=== PATIENT | female | born 1950 | race Caucasian/White ===

== ENCOUNTER 2019-05-21 21:20 | Inpatient (IN) | payer MEDICARE, MEDICAID ==
[~2019-05-21] VITALS: Ht 167.6 cm; Wt 90.5 kg
--- NOTE | 2019-05-21 21:00 | NUR ---
Received report from [facility]. Patient has not left the hospital yet.
[~2019-05-21 21:20] MED LIST: AMLO10TA PO; APIX5TAB3 PO; FERR325T28 PO; HYDR-4353 PO; LOSA100T57 PO; PANT40TA4 PO; POTA10TA19 PO; SERT100T10 PO; SIMV20TA5 PO
[2019-05-21 23:30] VITALS: BP 126/81
--- NOTE | 2019-05-21 23:50 | NUR ---
Patient arrived via EMR. Settled in room. Dr. Brasher called and is up on the floor with the patient.
[2019-05-21] MEDS ORDERED: magnesium hydroxide 30ml (MOM) UD suspension PO PRN (23:55)
[2019-05-21] MEDS ORDERED: ondansetron/PF 4mg/2ml inj IV PRN (23:55)
[2019-05-21] MEDS ORDERED: acetaminophen 325mg tablet PO PRN (23:55)
[2019-05-21] MEDS ORDERED: mag hydrox/Alum hydrox/simeth 30ml oral suspension PO PRN (23:55)
[2019-05-21] MEDS ORDERED: morphine 2 MG/ML inj. syringe IV PRN (23:55)
[2019-05-22] VITALS (19 sets, daily range): BP systolic 115–137; BP diastolic 70–88
[2019-05-22] MEDS ORDERED: DILT-94 PO (00:28)
[2019-05-22] MEDS ORDERED: APIX2.5T PO (00:28)
[2019-05-22] MEDS ORDERED: CARV3.12 PO (00:28)
[2019-05-22] MEDS ORDERED: ATOR80TA PO (00:28)
[2019-05-22] MEDS ORDERED: GABA-532 PO (00:28)
[2019-05-22] MEDS ORDERED: SENN-162 PO (00:28)
[2019-05-22] MEDS: normal saline 1000ml 1,000 ML IV SCH ×3 (00:45→16:32)
[2019-05-22] MEDS: metroNIDAZOLE-Flagyl 500mg/NS 100 ML IV SCH ×4 (00:45→23:37)
[2019-05-22] MEDS: morphine 2 MG/ML inj. syringe IV PRN ×3 (01:43→23:42)
--- NOTE | 2019-05-22 04:00 | NUR ---
Patient Prep and ready for surgery this morning. Bed bath given and olegario wiped.
[2019-05-22 05:22] LABS: BASOPHILS % (AUTO) 0.2 % (0-1); EOSINOPHILS % (AUTO) 0.1 % (0-6); HEMOGLOBIN 9.4 g/dl (12.0-16.0); LYMPHOCYTES % (AUTO) 7.8 % (21-51); MEAN CORPUSCULAR HEMOGLOBIN 30.5 PG (27.0-31.0); MEAN CORPUSCULAR HGB CONC 33.5 g/dL (33.0-36.5); MEAN CORPUSCULAR VOLUME 91.2 FL (78-98); MEAN PLATELET VOLUME 7.4 FL (7.4-10.4); MONOCYTES # (AUTO) 1.1 X10'3 (0-0.9); MONOCYTES % (AUTO) 8.1 % (2-12); NEUTROPHILS # (AUTO) 11.2 X10'3 (1.8-7.7); NEUTROPHILS % (AUTO) 83.8 % (42-75); PLATELET COUNT 166 X10'3 (140-440); RED BLOOD COUNT 3.07 X10'6 (4.20-5.60); RED CELL DISTRIBUTION WIDTH 15.3 % (11.5-14.5); WHITE BLOOD COUNT 13.4 X10'3 (4.5-11.0)
[2019-05-22 05:59] LABS: ALANINE AMINOTRANSFERASE 79 U/L (12-78); ALBUMIN 2.1 G/DL (3.4-5.0); ALBUMIN/GLOBULIN RATIO 0.6 (1.1-1.5); ALKALINE PHOSPHATASE 160 IU/L (46-116); ANION GAP 12 (8-16); ASPARTATE AMINO TRANSFERASE 85 U/L (10-37); BILIRUBIN,TOTAL 0.6 MG/DL (0.1-1.0); BLOOD UREA NITROGEN 10 MG/DL (7-18); BUN/CREATININE RATIO 15.2 (6.6-38.0); CALCIUM 8.1 MG/DL (8.5-10.1); CHLORIDE 107 MMOL/L (99-107); CREATININE 0.66 MG/DL (0.40-0.90); GLUCOSE 109 MG/DL (70-104); POTASSIUM 3.3 MMOL/L (3.5-5.1); SODIUM 141 MMOL/L (135-145); TOTAL CARBON DIOXIDE 21.8 MMOL/L (24-32); TOTAL PROTEIN 5.4 G/DL (6.4-8.2); eGFR 89 ML/MIN
--- NOTE | 2019-05-22 06:30 | NUR ---
Dr. Brasher notified to see if he would like another CxR done on patient before surgery. Inform him the patient had one done at [facility] yesterday- Results Negative for acute chest disease. said that was fine. We don't need another CxR.
[2019-05-22] MEDS ORDERED: potassium CL 10mEq/100ml bag 100 ML IV PRN (06:45)
[2019-05-22] MEDS ORDERED: magnesium 4gm in 100ml NS 100 ML IV PRN (06:45)
[2019-05-22] MEDS ORDERED: magnesium Cl slow-release 64mg tablet PO PRN (06:45)
[2019-05-22] MEDS ORDERED: potassium Cl 20 mEq SR tablet PO PRN (06:45)
[2019-05-22] MEDS ORDERED: magnesium 2GM in 50ml NS 50 ML IV PRN (06:45)
--- NOTE | 2019-05-22 07:10 | NUR ---
Patient in room [facility]. I have received report from Nandini NEGRON and had the opportunity to ask questions and assume patient care.
[2019-05-22 07:15] LABS: MAGNESIUM 1.6 MG/DL (1.5-2.4)
[2019-05-22] MEDS ORDERED: potassium Cl 40MEQ/NS 500ml 500 ML IV ONE (07:15)
[2019-05-22] MEDS: pantoprazole 40mg Tablet.DR PO SCH (07:28)
[2019-05-22] MEDS: diltiazem CD 120mg capsule (once-daily) PO SCH (07:28)
[2019-05-22] MEDS: carVEDilol 3.125mg tablet PO SCH ×2 (07:28→20:30)
--- NOTE | 2019-05-22 07:42 | NUR ---
Notified Zack OR Charge that patients K+ 3.3 and as soon as antibiotic is complete I will be hanging a 500ML bag of 40 Meq K+ for replacement. I also advised that lab is coming to draw her PT/INR. Per Zack he will come get her around 0930.
[2019-05-22] MEDS ORDERED: BUPIVAcaine/PF 2.5mg/ml (0.25%) 10ml vial ONE (09:25)
[2019-05-22] MEDS ORDERED: ceFAZolin 1000mg inj ONE (09:25)
[2019-05-22] MEDS ORDERED: ringers solution, lacted 1,000 ML IV SCH (10:08)
[2019-05-22] MEDS ORDERED: morphine 4 MG/ML inj SYRINge IV PRN ×2 (10:10)
[2019-05-22] MEDS ORDERED: ondansetron/PF 4mg/2ml inj IV PRN (10:10)
[2019-05-22] MEDS ORDERED: proCHLORperazine 10 MG/2 ml inj IV PRN (10:10)
[2019-05-22] MEDS ORDERED: meperidine/PF 25mg/ml syringe IV PRN ×2 (10:10)
[2019-05-22] MEDS ORDERED: sevoflurane 250ml liquid IH ONE (10:11)
[2019-05-22] MEDS ORDERED: rocuronium 10mg/ml inj IV ONE ×2 (10:11→10:16)
[2019-05-22] MEDS ORDERED: propofol inj 20 ML IV ONE (10:15)
[2019-05-22] MEDS ORDERED: fentaNYL /PF 50mcg/ml 5ml ampule ONE (10:15)
[2019-05-22] MEDS ORDERED: midazolam 2 mg/2 ml injection ONE (10:15)
[2019-05-22] MEDS ORDERED: ceFOXitin 2 GM ADDVANTGE BAG 50 ML IV ONE (10:20)
--- NOTE | 2019-05-22 11:06 | NUR ---
Patient report given to Valeria NEGRON all questions answered. Patient in surgery at this time she will assume patient care when she comes back to the floor.
--- NOTE | 2019-05-22 11:10 | NUR ---
Received report from JAMIL Angela. Patient down in OR. Will assume care when patient returns to room 340A.
[2019-05-22] MEDS ORDERED: neostigmine methylsulfate 1 MG/ML 10ml vial ONE (11:32)
[2019-05-22] MEDS ORDERED: glycopyrrolate 0.2mg/ml inj ONE (11:32)
--- NOTE | 2019-05-22 11:44 | NUR ---
Received from OR via SURGICAL BED , accompanied by Anesthesiologist ZOFIA and report given by Anesthesiolgist. PATIENT WITH 22G PIV IN RIGHT UE THAT IS NO FLUSHING OR WORKING AT ALL. 20G PIV IN LEFT AC NON FUNCTIONAL AND INFILTRATED IN LEFT. PATIENT IN PAIN AND NAUSEATED. ATTEMPTING PIV ACCESS. GABRIELE TO RIGHT OF ABDOMEN. DRESSINGS ALL CDI TO ABDOMEN. SCDS DONNED AND VSS AT THIS TIME. Addendum: 05/22/19 at 1220 by Rober Beaver RN, RN Amended: Links added.
--- NOTE | 2019-05-22 12:01 | NUR ---
Malnutrition consult re: "15 lb wt loss in the last month". Unable to obtain information from pt at this time as pt just came out of surgery for lap mychal. Only documented wt hx is 88.9 kg September 2016, current documented wt is 90.5 kg, no wt loss present using documented wt hx. Current wt classified as obese. Diet has just been advanced to clear liquid from NPO, pending documentation. No significant decrease in muscle strength or edema. Currently insufficient information to accurately assess for malnutrition at this time. Will f/u tomorrow. Addendum: 05/22/19 at [address] Amended: Links added.
[2019-05-22] MEDS: meperidine/PF 25mg/ml syringe IV PRN ×2 (12:26→12:50)
--- NOTE | 2019-05-22 13:04 | NUR ---
ALL DC CRITERIA HAS BEEN MET. IV IN RIGHT UE AND IS PATENT AND RUNNING PATIENT POTASSIUM. VSS. PAIN MUCH BETTER. JAMIL SHELTON PRESENT TO ASSESS PATIENT. LABEL MAKER PRESENT TO SET UP VS. CARE TURNED OVER TO RN. Addendum: 05/22/19 at 1324 by Rober Washington - JAMIL RN Amended: Links added.
--- NOTE | 2019-05-22 13:23 | NUR ---
Received patient to room 340a accompanied by JAMIL Richter. Patient is A&O and c/o pain 8/10 to abd. x3 band aids to abd CDI. GABRIELE to right abd with sanguinous output. Patient post op vitals initiated, on 3LNC, VSS.
[2019-05-22] MEDS: levoFLOXACIN-Levaquin 500mg/D5 100 ML IV SCH (13:38)
[2019-05-22] MEDS: HYDROcodone/acetaminophen 10/325mg tab PO PRN ×2 (15:05→20:25)
--- NOTE | 2019-05-22 17:07 | NUR ---
Problems reprioritized. Patient report given, questions answered & plan of care reviewed with JAMIL Melchor.
--- NOTE | 2019-05-22 18:22 | NUR ---
Problems reprioritized. Patient report given, questions answered & plan of care reviewed with JAMIL Momin.
--- NOTE | 2019-05-22 18:35 | NUR ---
Patient in room [facility]. I have received report from Mynra NEGRON and had the opportunity to ask questions and assume patient care.
[2019-05-22] MEDS: lactobacillus rhamnosus 10,000 MMU CELLS/CAPSULE PO SCH (20:25)
[2019-05-22] MEDS: amLODIPine 5mg tablet PO SCH (20:30)
[2019-05-23] VITALS: BP 109/60
[2019-05-23 05:21] LABS: BASOPHILS # (AUTO) 0.2 X10'3 (0-0.2); BASOPHILS % (AUTO) 1.2 % (0-1); EOSINOPHILS # (AUTO) 0.1 X10'3 (0-0.9); EOSINOPHILS % (AUTO) 0.8 % (0-6); HEMATOCRIT 30.2 % (35.0-45.0); LYMPHOCYTES # (AUTO) 0.8 X10'3 (1.1-4.8); LYMPHOCYTES % (AUTO) 5.9 % (21-51); MEAN CORPUSCULAR HEMOGLOBIN 30.3 PG (27.0-31.0); MEAN CORPUSCULAR HGB CONC 33.2 g/dL (33.0-36.5); MEAN CORPUSCULAR VOLUME 91.3 FL (78-98); MEAN PLATELET VOLUME 7.3 FL (7.4-10.4); MONOCYTES # (AUTO) 0.8 X10'3 (0-0.9); MONOCYTES % (AUTO) 5.7 % (2-12); NEUTROPHILS # (AUTO) 11.5 X10'3 (1.8-7.7); NEUTROPHILS % (AUTO) 86.4 % (42-75); PLATELET COUNT 241 X10'3 (140-440); RED CELL DISTRIBUTION WIDTH 15.9 % (11.5-14.5); WHITE BLOOD COUNT 13.3 X10'3 (4.5-11.0)
[2019-05-23] MEDS: HYDROcodone/acetaminophen 10/325mg tab PO PRN ×3 (05:44→19:38)
[2019-05-23] MEDS: normal saline 1000ml 1,000 ML IV SCH ×3 (05:46→20:21)
--- NOTE | 2019-05-23 05:51 | NUR ---
Around 5AM, patient was reminded that she had to walk (per her request to walk in the early AM as didn't feel like it last night). However, patient refused ,stating that she needed ice for her back. Informed patient that we would get ice for her back after her walk and that by getting OOB, that might help her back anyways. Patient was upset and threw back covers and started to get OOb with scd,s still on. Patient did ambulate, around 40 ft with FWW and 2 people assist. Ice was provided for her back and norco 10 given for pain once patient returned to bed.
--- NOTE | 2019-05-23 06:30 | NUR ---
Problems reprioritized. Patient report given, questions answered & plan of care reviewed with Myrna NEGRON.
[2019-05-23 07:15] VITALS: BP 124/61
[2019-05-23 07:19] LABS: ALANINE AMINOTRANSFERASE 72 U/L (12-78); ALBUMIN 2.1 G/DL (3.4-5.0); ALBUMIN/GLOBULIN RATIO 0.6 (1.1-1.5); ALKALINE PHOSPHATASE 178 IU/L (46-116); ANION GAP 11 (8-16); ASPARTATE AMINO TRANSFERASE 61 U/L (10-37); BILIRUBIN,TOTAL 0.4 MG/DL (0.1-1.0); BLOOD UREA NITROGEN 9 MG/DL (7-18); BUN/CREATININE RATIO 14.1 (6.6-38.0); CALCIUM 8.3 MG/DL (8.5-10.1); CHLORIDE 108 MMOL/L (99-107); CREATININE 0.64 MG/DL (0.40-0.90); GLUCOSE 105 MG/DL (70-104); POTASSIUM 3.6 MMOL/L (3.5-5.1); SODIUM 141 MMOL/L (135-145); TOTAL CARBON DIOXIDE 21.8 MMOL/L (24-32); TOTAL PROTEIN 5.7 G/DL (6.4-8.2); eGFR > 90 ML/MIN
[2019-05-23] MEDS: carVEDilol 3.125mg tablet PO SCH ×2 (08:08→19:38)
[2019-05-23] MEDS: diltiazem CD 120mg capsule (once-daily) PO SCH (08:09)
[2019-05-23] MEDS: pantoprazole 40mg Tablet.DR PO SCH (08:09)
[2019-05-23] MEDS: lactobacillus rhamnosus 10,000 MMU CELLS/CAPSULE PO SCH ×2 (08:09→19:38)
[2019-05-23] MEDS: metroNIDAZOLE-Flagyl 500mg/NS 100 ML IV SCH (08:12)
[2019-05-23] MEDS: levoFLOXACIN-Levaquin 500mg/D5 100 ML IV SCH (09:14)
--- NOTE | 2019-05-23 10:30 | NUR ---
Dr Hoskins saw pt and discussed that the surgical drain might be dc'd 05/24, and pt may possibly be discharged 05/24 or 05/25. Pt verbalized understanding.
[2019-05-23 11:00] VITALS: BP 125/70
--- NOTE | 2019-05-23 13:34 | NUR ---
Patient was sitting up in chair eating lunch. She stated she would like to go back to bed. Encouraged patient to ambulate one more time before going back to bed and she refused. She stated "I've already walked twice, I am not walking again today." Assisted patient back to bed, checked O2 saturation and she was 91-92% on room air. she requested to be on 1L of oxygen. Patient wears 2.5L of oxygen at home at night and throughout the day PRN.
[2019-05-23] MEDS: metroNIDAZOLE 500mg tablet PO SCH ×2 (15:59→21:39)
--- NOTE | 2019-05-23 17:04 | NUR ---
F/u for malnutrition consult: Pt seen at bedside reports 5 lb wt loss in 1 month r/t abdominal pain from cholecystitis. This is non-significant wt loss of 2% in 1 month. 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 Pt with no visible fat or muscle wasting. Pt currently does not meet criteria for malnutrition. Pt denies food allergies or difficulty chewing/swallowing. Reports constipation with LBM 05/20, agreeable to prune juice with dinner [place] d/w dietary. Pt reports blisters in mouth and requests no citrus at this time. Pt requests yogurt TID. All food requests d/w dietary. RD contact information provided. Pt c/o issues with current room r/t increased noise level with adjacent room and requests to be moved to a different room, d/w RN. Will continue to follow. Addendum: 05/23/19 at [address] Amended: Links added.
--- NOTE | 2019-05-23 17:50 | NUR ---
Stable and appropriate for discharge with son. Patient discharge instructions given and reviewed with patient, all questions answered. IV removed. New prescriptions [place] [facility] [address]. All belongings taken from room. Addendum: 05/23/19 at 1755 by Jill Mart RN Charted on wrong patient. Please disregard note!
--- NOTE | 2019-05-23 18:18 | NUR ---
Problems reprioritized. Patient report given, questions answered & plan of care reviewed with JAMIL Pineda.
[2019-05-23 19:00] VITALS: BP 143/86
[2019-05-23] MEDS: temazepam 15mg capsule PO PRN (21:39)
[2019-05-23] MEDS: amLODIPine 5mg tablet PO SCH (21:39)
[2019-05-24] VITALS: BP 131/77
[2019-05-24] MEDS: normal saline 1000ml 1,000 ML IV SCH ×2 (05:44→16:06)
[2019-05-24 06:20] LABS: BASOPHILS % (AUTO) 0.6 % (0-1); EOSINOPHILS # (AUTO) 0.4 X10'3 (0-0.9); EOSINOPHILS % (AUTO) 5.3 % (0-6); HEMATOCRIT 28.5 % (35.0-45.0); HEMOGLOBIN 9.8 g/dl (12.0-16.0); LYMPHOCYTES % (AUTO) 12.5 % (21-51); MEAN CORPUSCULAR HEMOGLOBIN 30.8 PG (27.0-31.0); MEAN CORPUSCULAR HGB CONC 34.5 g/dL (33.0-36.5); MEAN CORPUSCULAR VOLUME 89.4 FL (78-98); MEAN PLATELET VOLUME 6.9 FL (7.4-10.4); MONOCYTES # (AUTO) 0.5 X10'3 (0-0.9); MONOCYTES % (AUTO) 6.2 % (2-12); NEUTROPHILS # (AUTO) 6.3 X10'3 (1.8-7.7); NEUTROPHILS % (AUTO) 75.4 % (42-75); PLATELET COUNT 330 X10'3 (140-440); RED BLOOD COUNT 3.19 X10'6 (4.20-5.60); RED CELL DISTRIBUTION WIDTH 15.6 % (11.5-14.5); WHITE BLOOD COUNT 8.4 X10'3 (4.5-11.0)
[2019-05-24 06:54] LABS: ALANINE AMINOTRANSFERASE 55 U/L (12-78); ALBUMIN 2.2 G/DL (3.4-5.0); ALBUMIN/GLOBULIN RATIO 0.6 (1.1-1.5); ALKALINE PHOSPHATASE 163 IU/L (46-116); ANION GAP 11 (8-16); ASPARTATE AMINO TRANSFERASE 39 U/L (10-37); BILIRUBIN,TOTAL 0.4 MG/DL (0.1-1.0); BLOOD UREA NITROGEN 7 MG/DL (7-18); BUN/CREATININE RATIO 11.3 (6.6-38.0); CALCIUM 8.2 MG/DL (8.5-10.1); CHLORIDE 107 MMOL/L (99-107); CREATININE 0.62 MG/DL (0.40-0.90); GLUCOSE 108 MG/DL (70-104); POTASSIUM 3.1 MMOL/L (3.5-5.1); SODIUM 143 MMOL/L (135-145); TOTAL CARBON DIOXIDE 25.1 MMOL/L (24-32); TOTAL PROTEIN 5.9 G/DL (6.4-8.2); eGFR > 90 ML/MIN
[2019-05-24] MEDS: pantoprazole 40mg Tablet.DR PO SCH (07:31)
[2019-05-24] MEDS: lactobacillus rhamnosus 10,000 MMU CELLS/CAPSULE PO SCH ×2 (07:31→20:27)
[2019-05-24] MEDS: metroNIDAZOLE 500mg tablet PO SCH ×2 (07:32→16:04)
[2019-05-24] MEDS: potassium Cl 20 mEq SR tablet PO PRN ×3 (07:32→16:04)
[2019-05-24] MEDS: diltiazem CD 120mg capsule (once-daily) PO SCH (07:32)
[2019-05-24] MEDS: carVEDilol 3.125mg tablet PO SCH ×2 (07:32→20:26)
[2019-05-24 07:45] VITALS: BP 135/87
[2019-05-24] MEDS: ondansetron/PF 4mg/2ml inj IV PRN ×2 (09:41→17:53)
[2019-05-24 11:00] VITALS: BP 141/90
[2019-05-24] MEDS: levoFLOXACIN 500mg tablet PO SCH (11:11)
--- NOTE | 2019-05-24 12:49 | NUR ---
PT C/O SOME DIZZINESS WITH WALKING AND SLIGHT WEAKNESS, HAD TO STOP A COUPLE TIMES DURING WALK. OVERALL DID WELL ON WALK 200FT. WILL CONTINUE TO MONITOR.
--- NOTE | 2019-05-24 14:08 | NUR ---
Received page from RN regarding pt requesting to speak with RD. Pt reports difficulty eating tomato soup d/t mouth sores and also requests no milk to drink or ice cream and would like prune juice TID, preferences d/w dietary. Called RN to inform about patient reporting mouth sores and inquired about possibility of Magic Mouthwash or some agent to help reduce mouth pain per MD approval. Will continue to follow. Addendum: 05/24/19 at [address] Amended: Links added.
[2019-05-24] MEDS: HYDROcodone/acetaminophen 10/325mg tab PO PRN ×3 (14:12→22:49)
[2019-05-24] MEDS: sertraline 50mg tablet PO SCH (16:35)
[2019-05-24 18:15] VITALS: BP 126/76
--- NOTE | 2019-05-24 18:30 | NUR ---
Patient in room [facility]. I have received report from JAMIL Mayfield and had the opportunity to ask questions and assume patient care.
--- NOTE | 2019-05-24 18:58 | NUR ---
Problems reprioritized. Patient report given, questions answered & plan of care reviewed with MIHAELA NEGRON.
[2019-05-24] MEDS: magnesium hydroxide 30ml (MOM) UD suspension PO SCH (20:00)
[2019-05-24] MEDS: amLODIPine 5mg tablet PO SCH (22:16)
[2019-05-24] MEDS: temazepam 15mg capsule PO PRN (22:17)
[2019-05-25 00:15] VITALS: BP 121/79
[2019-05-25] MEDS: metroNIDAZOLE 500mg tablet PO SCH ×2 (00:22→08:18)
[2019-05-25] MEDS: normal saline 1000ml 1,000 ML IV SCH (01:30)
[2019-05-25] MEDS: HYDROcodone/acetaminophen 10/325mg tab PO PRN ×2 (03:50→08:25)
[2019-05-25 06:34] LABS: BASOPHILS % (AUTO) 0.5 % (0-1); EOSINOPHILS # (AUTO) 0.4 X10'3 (0-0.9); EOSINOPHILS % (AUTO) 6.8 % (0-6); HEMATOCRIT 26.9 % (35.0-45.0); HEMOGLOBIN 9.2 g/dl (12.0-16.0); LYMPHOCYTES # (AUTO) 1.1 X10'3 (1.1-4.8); LYMPHOCYTES % (AUTO) 18.5 % (21-51); MEAN CORPUSCULAR HEMOGLOBIN 30.5 PG (27.0-31.0); MEAN CORPUSCULAR HGB CONC 34.1 g/dL (33.0-36.5); MEAN CORPUSCULAR VOLUME 89.5 FL (78-98); MEAN PLATELET VOLUME 6.3 FL (7.4-10.4); MONOCYTES # (AUTO) 0.6 X10'3 (0-0.9); MONOCYTES % (AUTO) 9.8 % (2-12); NEUTROPHILS # (AUTO) 3.7 X10'3 (1.8-7.7); NEUTROPHILS % (AUTO) 64.4 % (42-75); PLATELET COUNT 335 X10'3 (140-440); RED BLOOD COUNT 3.01 X10'6 (4.20-5.60); RED CELL DISTRIBUTION WIDTH 15.9 % (11.5-14.5); WHITE BLOOD COUNT 5.8 X10'3 (4.5-11.0)
--- NOTE | 2019-05-25 06:39 | NUR ---
Problems reprioritized. Patient report given, questions answered & plan of care reviewed with JAMIL Farias.
[2019-05-25 06:41] LABS: ALANINE AMINOTRANSFERASE 44 U/L (12-78); ALBUMIN 2.1 G/DL (3.4-5.0); ALBUMIN/GLOBULIN RATIO 0.6 (1.1-1.5); ALKALINE PHOSPHATASE 132 IU/L (46-116); ANION GAP 9 (8-16); ASPARTATE AMINO TRANSFERASE 31 U/L (10-37); BILIRUBIN,TOTAL 0.4 MG/DL (0.1-1.0); BLOOD UREA NITROGEN 4 MG/DL (7-18); BUN/CREATININE RATIO 6.3 (6.6-38.0); CHLORIDE 107 MMOL/L (99-107); CREATININE 0.63 MG/DL (0.40-0.90); GLUCOSE 107 MG/DL (70-104); POTASSIUM 3.1 MMOL/L (3.5-5.1); SODIUM 143 MMOL/L (135-145); TOTAL CARBON DIOXIDE 27.5 MMOL/L (24-32); TOTAL PROTEIN 5.6 G/DL (6.4-8.2); eGFR > 90 ML/MIN
--- NOTE | 2019-05-25 06:44 | NUR ---
Patient in room [facility] 357A. I have received report from Miriam NEGRON and Bryanna RN and had the opportunity to ask questions and assume patient care.
[2019-05-25 07:11] VITALS: BP 135/79
[2019-05-25] MEDS: magnesium hydroxide 30ml (MOM) UD suspension PO SCH (08:00)
[2019-05-25] MEDS ORDERED: magnesium Cl slow-release 64mg tablet PO PRN (08:05)
[2019-05-25] MEDS ORDERED: potassium Cl 20 mEq SR tablet PO PRN ×2 (08:05)
[2019-05-25] MEDS ORDERED: potassium CL 10mEq/100ml bag 100 ML IV PRN (08:05)
[2019-05-25] MEDS ORDERED: magnesium 4gm in 100ml NS 100 ML IV PRN (08:05)
[2019-05-25] MEDS: diltiazem CD 120mg capsule (once-daily) PO SCH (08:18)
[2019-05-25] MEDS: lactobacillus rhamnosus 10,000 MMU CELLS/CAPSULE PO SCH (08:18)
[2019-05-25] MEDS: pantoprazole 40mg Tablet.DR PO SCH (08:18)
[2019-05-25] MEDS: carVEDilol 3.125mg tablet PO SCH (08:18)
[2019-05-25] MEDS: sertraline 50mg tablet PO SCH (08:18)
[2019-05-25] MEDS ORDERED: POTA20TA10 PO (08:48)
--- NOTE | 2019-05-25 10:00 | NUR ---
Patient discharged on nursing end. Medications called in to [facility] in [place]. Dr. Ace states the pateint can discharge per Dr. Hoskins and Rachael curing room worker nurse conversation with her.
[2019-05-25] MEDS: levoFLOXACIN 500mg tablet PO SCH (11:03)
[2019-05-25 11:39] VITALS: BP 143/80
--- NOTE | 2019-05-25 12:12 | NUR ---
Patient waiting on ride. Leadership Coach from [place], will take a while to be here.
--- NOTE | 2019-05-25 14:07 | NUR ---
Patient discharged with all belongings, confectionery drops machine operator providing ride home to [place]. Patients education completed, no lifting 20+ lbs, may shower. Patient will follow up with own PCP in [place], Dr. Hoskins states no need to travel and if PA sees any concern to call him at his office. Patient acknowledge with understanding. WC by staff to lobby.
--- NOTE | 2019-05-25 14:12 | NUR ---
All belongings sent with patient and caregiver Addendum: 05/25/19 at 1413 by Dinora Aranda RN Amended: Links added.
== END 2019-05-25 14:15 | disposition home or self-care (01) | DRG 419 ==
LOC: SUR 3N 23:12
PROVIDERS: ADMIT Internal Medicine; ATTEND Internal Medicine
PROC: 0FT44ZZ Resection of Gallbladder, Percutaneous Endoscopic Approach (ICD-10-PCS; principal; 2019-05-22 10:01)
DX: K81.0 Acute cholecystitis (principal); I25.10 Atherosclerotic heart disease of native coronary artery without angina pectoris; D64.9 Anemia, unspecified; E78.5 Hyperlipidemia, unspecified; I48.2 Chronic atrial fibrillation; K66.8 Other specified disorders of peritoneum; R04.0 Epistaxis; Z79.01 Long term (current) use of anticoagulants; Z95.5 Presence of coronary angioplasty implant and graft; I10 Essential (primary) hypertension
CPT/HCPCS: 36415; 80053; 83735; 85025; 85610; 87081; 88304; 97162; A4215; A4618; A6402; A7000; G0378; J0690; J0694; J1956; J2175; J2250; J2270; J2405; J2704; J2710; J3010; J3480; J3490; J7030; J7120